=== PATIENT | female | born 1950 | race Caucasian/White ===

== ENCOUNTER 2017-01-18 08:01 | Day surgery (SDC) | payer MEDICARE, BC ==
[2017-01-18] MEDS ORDERED: Lactated Ringers 1,000 ML IV SCH (08:45)
[2017-01-18] MEDS ORDERED: Propofol 200 MG/20 ML SDV ONE ×2 (09:29→10:34)
[2017-01-18] MEDS ORDERED: fentaNYL 100 MCG/2 ML SDV ONE (09:30)
[2017-01-18] MEDS ORDERED: Midazolam 1 MG/ML 2 ML SDV ONE (09:30)
[2017-01-18 12:14] VITALS: BP 136/75
--- NOTE | 2017-01-19 08:20 | OR ---
DATE OF PROCEDURE: 01/18/2017 PREOPERATIVE DIAGNOSIS: Colon cancer screening. POSTOPERATIVE DIAGNOSIS: Unremarkable colonoscopy. PROCEDURE: Colonoscopy to the cecum. ANESTHESIA: IV anesthesia with monitored anesthesia care. INDICATION: This 66-year-old white female is referred for a colonoscopy for colon cancer screening. She says her last colonoscopic exam was done about 10 years ago. I counseled her for the procedure including risks and alternatives and she gave her informed consent to proceed. DESCRIPTION OF PROCEDURE: The patient was placed in the left lateral decubitus position. IV anesthesia was administered by the Anesthesia Service. Time-out was held. A rectal exam was performed, which was unremarkable. The flexible video Olympus colonoscope was introduced through her anus, up her rectum, and out her colon all way to the cecum. To accomplish this, we did have to apply some abdominal compression. En route, we aspirated a lot of liquid stool free which also had some solid associated with this. This plugged the scope several times. We had to replace the suction valve as it became plugged. Once the cecum was reached, the scope was slowly withdrawn examining the mucosa throughout. No mucosal abnormalities were noted. The scope was retroflexed in the rectum with the distal rectum appearing unremarkable. The scope was straightened and removed. She tolerated the procedure well. Tre Bishop MD /[id number]
== END 2017-01-18 12:25 | disposition home or self-care (01) ==
LOC: JP.SDS 08:01
PROVIDERS: ATTEND Surgery
DX: Z12.11 Encounter for screening for malignant neoplasm of colon (principal); E78.5 Hyperlipidemia, unspecified; F41.9 Anxiety disorder, unspecified
CPT/HCPCS: G0121; J2250; J2704; J3010; J7120

== ENCOUNTER 2017-06-30 10:11 | Emergency (ER) | payer MEDICARE, BC ==
[2017-06-30] MEDS ORDERED: Sodium Chloride 0.9% 10 ML Syringe FLUSH PRN (10:59)
[2017-06-30] MEDS ORDERED: cefTRIAXone 2 GM in Sodium Chloride 0.9% 50 ML IV ONE (11:15)
--- NOTE | 2017-06-30 11:58 | EDM.PDOC ---
ED HPI GENERAL MEDICAL PROBLEM - General Chief Complaint: Skin Complaint Stated Complaint: RIGHT HAND SWELLING/CAT SCRATCH Time Seen by Provider: 06/30/17 10:30 Source of Information: Reports: Patient History Limitations: Reports: No Limitations - History of Present Illness INITIAL COMMENTS - FREE TEXT/NARRATIVE: 66-year-old female who was bitten or scratched on her right hand by cats 3 days ago when trying to break up a cat fight. The following day she had redness and swelling and was started on Augmentin at the clinic. Unfortunately she was unable to fill the prescription for another 24 hours, and has only had 2 doses. She starting to have worsening swelling and pain of the right hand with red streaks up the arm almost to the axillary area. No fevers or chills to this point. No nausea or vomiting. She wants to treat this on an outpatient basis. Onset: Gradual (Over the past 2 days) Severity: Moderate Associated Symptoms: Denies: Fever/Chills, Malaise Right Hand Pain Score (Numeric/FACES): 6 - Related Data Allergies Allergy/AdvReac Type Severity Reaction Status Date / Time alendronate sodium Allergy Rash Verified 06/30/17 10:26 [From Fosamax] Home Meds: Home Meds Aspirin [Huang Chewable Aspirin] 1 tab PO DAILY 05/25/15 [History] Meloxicam [Meloxicam] 1 tab PO DAILY 05/25/15 [History] Cholecalciferol (Vitamin D3) [Vitamin D] 400 units PO DAILY 08/26/15 [History] Multivitamin [Multi-Vitamin Daily] 1 tab PO DAILY 01/16/17 [History] Amoxicillin/Potassium Clav [Amox-Clav 875-125 mg Tablet] 1 tab PO BID 06/30/17 [ History] Calcium Carbonate [Calcium] 500 mg PO DAILY 06/30/17 [History] Past Medical History HEENT History: Reports: Impaired Vision Other HEENT History: brain tumor- benign Cardiovascular History: Reports: Heart Murmur, Other (See Below) Other Cardiovascular History: mitral valve prolapse HIDE DYER History: Reports: Prolapsed Uterus Musculoskeletal History: Reports: Osteoarthritis Neurological History: Reports: Other (See Below) Other Neuro History: brain tumor Psychiatric History: Reports: Anxiety - Infectious Disease History Infectious Disease History: Reports: Chicken Pox, Measles - Past Surgical History HEENT Surgical History: Reports: None Cardiovascular Surgical History: Reports: None Neurological Surgical History: Reports: None Musculoskeletal Surgical History: Reports: None Social & Family History - Tobacco Use Smoking Status *Q: Never Smoker Second Hand Smoke Exposure: No - Caffeine Use Caffeine Use: Reports: Coffee - Alcohol Use Days Per Week of Alcohol Use: 7 Number of Drinks Per Day: 1 Total Drinks Per Week: 7 - Recreational Drug Use Recreational Drug Use: No ED ROS GENERAL - Review of Systems Review Of Systems: See Below Constitutional: Denies: Fever, Chills, Malaise Respiratory: Denies: Shortness of Breath Cardiovascular: Denies: Chest Pain GI/Abdominal: Denies: Abdominal Pain, Nausea, Vomiting Neurological: Reports: No Symptoms Psychiatric: Reports: No Symptoms ED EXAM, SKIN/RASH Exam: See Below Exam Limited By: No Limitations General Appearance: Alert, No Apparent Distress Respiratory/Chest: No Respiratory Distress, Lungs Clear Cardiovascular: Regular Rate, Rhythm Extremities: Other (Exam is otherwise limited to the right arm and hand. The patient has lymphangitic spread with erythema up the arm to the axillary area but no lymphadenopathy. On the hand she has some fluctuance over the dorsum of the hand especially to the MP joints of the index and middle fingers.) Course - Vital Signs Last Recorded V/S: Last Vital Signs Temp 98.4 F 06/30/17 12:16 Pulse 61 06/30/17 12:16 Resp 14 06/30/17 12:16 BP 130/70 06/30/17 12:16 Pulse Ox 98 06/30/17 12:16 - Orders/Labs/Meds Orders: Active Orders 24 hr Category Date Time Status Saline Lock Insert [OM.PC] Routine Oth 06/30/17 10:59 Ordered Labs: Laboratory Tests 06/30/17 06/30/17 Range/Units 11:05 11:05 WBC 13.1 H (4.5-11.0) K/uL RBC 4.32 (3.30-5.50) M/uL Hgb 13.3 (12.0-15.0) g/dL Hct 40.9 (36.0-48.0) % MCV 95 (80-98) fL MCH 31 (27-31) pg MCHC 33 (32-36) % Plt Count 237 (150-400) K/uL Neut % (Auto) 82 H (36-66) % Lymph % (Auto) 9 L (24-44) % [place] % (Auto) 9 H (2-6) % Eos % (Auto) 0 L (2-4) % Baso % (Auto) 0 (0-1) % Sodium 139 L (140-148) mmol/L Potassium 3.4 L (3.6-5.2) mmol/L Chloride 104 (100-108) mmol/L Carbon Dioxide 27 (21-32) mmol/L Anion Gap 11.4 (5.0-14.0) mmol/L BUN 15 (7-18) mg/dL Creatinine 0.8 (0.6-1.0) mg/dL Est Cr Clr Drug Dosing 55.45 mL/min Estimated GFR (MDRD) > 60 (>60) Glucose 102 (74-106) mg/dL Calcium 9.1 (8.5-10.1) mg/dL Meds: Medications Discontinued Medications Generic Name Dose Route Start Last Admin Trade Name Freq PRN Reason Stop Dose Admin Ceftriaxone Sodium 2 gm/ 50 mls @ 100 mls/hr 06/30/17 11:15 06/30/17 11:23 Sodium Chloride IV 06/30/17 11:44 100 mls/hr ONETIME ONE Administration Sodium Chloride 10 ml 06/30/17 10:59 06/30/17 11:22 Saline Flush FLUSH 10 ml ASDIRECTED PRN Administration Keep Vein Open - Re-Assessments/Exams Free Text/Narrative Re-Assessment/Exam: 06/30/17 11:54 Admission and/or orthopedic consultation was discussed with the patient, she wanted to attempt IV antibiotics for 24 hours. Her white count was 13.1. Electrolytes were normal. An IV was started and the patient was given 2 g of Rocephin IV and will return in 24 hours for a second IV dose. I also had Dr. Cunningham, hospitalist look at the patient's arm so he can compare her progress or lack of it tomorrow. Departure - Departure Time of Disposition: 12:19 Disposition: Home, Self-Care 01 Condition: Fair Clinical Impression: Cellulitis of multiple sites of right hand and fingers Cat bite of hand Qualifiers: Encounter type: initial encounter Laterality: right Qualified Code(s): S61.451A - Open bite of right hand, initial encounter - Discharge Information Instructions: Animal Bite, [id number], Cellulitis, Adult, [id number] Referrals: Luz Orta PA [Primary Care Provider] - Forms: ED Department Discharge Care Plan Goals: Return tomorrow morning for another IV dose of antibiotic. Continue twice daily Augmentin as prescribed. Alternating warm and cool compresses to the hand along with elevation may help. Return sooner if worsening rapidly or you develop other concerns. - My Orders Last 24 Hours: My Active Orders 06/30/17 10:59 Saline Lock Insert [OM.PC] Routine - Assessment/Plan Last 24 Hours: My Active Orders 06/30/17 10:59 Saline Lock Insert [OM.PC] Routine
[2017-06-30 12:17] VITALS: BP 130/70
== END 2017-06-30 12:20 | disposition home or self-care (01) ==
LOC: JP.ED 10:11
DX: S61.451A Open bite of right hand, initial encounter (principal); L03.113 Cellulitis of right upper limb; H54.7 Unspecified visual loss; M19.90 Unspecified osteoarthritis, unspecified site; Z88.8 Allergy status to other drugs, medicaments and biological substances; Z79.82 Long term (current) use of aspirin; Z79.899 Other long term (current) drug therapy; W55.01XA Bitten by cat, initial encounter
CPT/HCPCS: 36415; 80048; 85025; 96365; 99282; 99284; A4217; J0696; J7050

== ENCOUNTER 2021-02-26 10:27 | Emergency (ER) | payer MEDICARE ==
[2021-02-26 10:40] VITALS: BP 132/81; PULSE 72
--- NOTE | 2021-02-26 11:00 | EDM.PDOC ---
ED HPI GENERAL MEDICAL PROBLEM - General Chief Complaint: Skin Complaint Stated Complaint: POSSIBLE BLOOD CLOT IN RT LEG Time Seen by Provider: 02/26/21 10:45 Source of Information: Reports: Patient, Old Records, RN History Limitations: Reports: No Limitations - History of Present Illness INITIAL COMMENTS - FREE TEXT/NARRATIVE: 70 yo female was sent from the [facility] to the ER to evaluate a lump on the back of her R calf that Jennifer found recently. She was refused an appt and told her only option was to come to the ER. She has no other sx's from this. Onset: Unknown/Unsure Location: Reports: Lower Extremity, Right Quality: Reports: Other (no pain unless squeezed) Severity: Moderate (with squeezing) Improves with: Reports: None Worsens with: Reports: Other (pressing on it) Context: Reports: Other (See HPI) Associated Symptoms: Reports: No Other Symptoms Treatments DIRECTOR OF STRATEGIC COMMUNICATIONS: Reports: Other (see below) (none) - Related Data Allergies Allergy/AdvReac Type Severity Reaction Status Date / Time alendronate sodium Allergy Rash Verified 02/26/21 10:38 [From Fosamax] Home Meds: Home Meds Aspirin [Huang Chewable Aspirin] 1 tab PO DAILY 05/25/15 [History] Meloxicam 1 tab PO DAILY 05/25/15 [History] Calcium Carbonate [Calcium] 500 mg PO DAILY 06/30/17 [History] Past Medical History HEENT History: Reports: Impaired Vision Other HEENT History: brain tumor- benign Cardiovascular History: Reports: Heart Murmur, Other (See Below) Other Cardiovascular History: mitral valve prolapse [employer] History: Reports: Prolapsed Uterus Musculoskeletal History: Reports: Osteoarthritis Neurological History: Reports: Other (See Below) Other Neuro History: brain tumor Psychiatric History: Reports: Anxiety - Infectious Disease History Infectious Disease History: Reports: Chicken Pox, Measles - Past Surgical History Head Surgeries/Procedures: Reports: None HEENT Surgical History: Reports: None Cardiovascular Surgical History: Reports: None Neurological Surgical History: Reports: None Musculoskeletal Surgical History: Reports: None Dermatological Surgical History: Reports: None Social & Family History - Tobacco Use Tobacco Use Status *Q: Never Tobacco User Second Hand Smoke Exposure: No - Caffeine Use Caffeine Use: Reports: Coffee, Soda - Alcohol Use Days Per Week of Alcohol Use: 7 Number of Drinks Per Day: 1 Total Drinks Per Week: 7 - Recreational Drug Use Recreational Drug Use: No ED ROS GENERAL - Review of Systems Review Of Systems: See Below Constitutional: Reports: No Symptoms Respiratory: Denies: Shortness of Breath, Pleuritic Chest Pain Musculoskeletal: Reports: No Symptoms Skin: Reports: Lumps (middle of R calf). Denies: Bruising, Pruritis, Erythema Neurological: Reports: No Symptoms ED EXAM, SKIN/RASH Exam: See Below Exam Limited By: No Limitations General Appearance: Alert, WD/WN, No Apparent Distress Extremities: Normal Inspection, Normal Range of Motion, Non-Tender, No Pedal Edema. No: Diana's Sign, Increased Warmth, Redness Neurological: Alert, Oriented, CN II-XII Intact, Normal Cognition, No Motor/Sensory Deficits Skin: Warm, Dry, Intact, Normal Color, No Rash, Other (There is a soft round approx 1.5 cm lump to the back of her R calf area. Etiology unclear. ) Location, Skin: Lower Extremity, Right Characteristics: No: Petechial, Erythematous Associated features: Tenderness (with squeezing or pressing on it only.). No: Warmth, Induration Course - Vital Signs Last Recorded V/S: Last Vital Signs Temp 36.4 C 02/26/21 10:42 Pulse 72 02/26/21 10:42 Resp 16 02/26/21 10:42 BP 132/81 02/26/21 10:42 Pulse Ox 99 02/26/21 10:42 Departure - Departure Time of Disposition: 11:01 Disposition: Home, Self-Care 01 Condition: Good Clinical Impression: Lump of skin of right lower extremity - Discharge Information *PRESCRIPTION DRUG MONITORING PROGRAM REVIEWED*: Not Applicable *COPY OF PRESCRIPTION DRUG MONITORING REPORT IN PATIENT ANTONINA: Not Applicable Referrals: Luz Orta PA [Primary Care Provider] - Forms: ED Department Discharge Additional Instructions: Recheck with your provider for removal if the lesion gets larger or gives you trouble. This is not a blood clot and most likely represents a benign process. Sepsis Event Note (ED) - Evaluation Sepsis Screening Result: No Definite Risk - Focused Exam Vital Signs: Vital Signs Temp Pulse Resp BP Pulse Ox 02/26/21 10:42 36.4 C 72 16 132/81 99 02/26/21 10:39 36.4 C 72 16 132/81 99
== END 2021-02-26 11:09 | disposition home or self-care (01) ==
LOC: JP.ED 10:27
DX: R22.41 Localized swelling, mass and lump, right lower limb (principal); Z88.8 Allergy status to other drugs, medicaments and biological substances; Z79.82 Long term (current) use of aspirin; Z79.899 Other long term (current) drug therapy
CPT/HCPCS: 99282

== ENCOUNTER 2021-12-03 18:03 | Emergency (ER) | payer MEDICARE ==
[2021-12-03] MEDS ORDERED: cefTRIAXone 2 GM in Sodium Chloride 0.9% 50 ML IV ONE (18:24)
[2021-12-03 18:39] VITALS: BP 129/64; PULSE 72
== END 2021-12-03 19:26 | disposition home or self-care (01) ==
LOC: JP.ED 18:03
DX: L03.113 Cellulitis of right upper limb (principal); Z88.8 Allergy status to other drugs, medicaments and biological substances; Z79.82 Long term (current) use of aspirin
CPT/HCPCS: 96365; 99283; J0696